=== PATIENT | male | born 1940 | race Caucasian/White ===

== ENCOUNTER 2023-05-24 09:28 | Outpatient (CLI) | payer MEDICARE, BC ==
[2023-05-24 11:05] LABS: #Basophils 0.1 10x3/uL (0.0-0.2); #Eosinphils 0.1 10x3/uL (0.0-0.5); #Neutrophils 4.9 10x3/uL (1.5-8.4); %Basophils 1.6 % (0.0-2.0); %Eosinophils 1.5 % (0.0-6.0); %Lymphocytes 29.3 % (18.0-47.0); %Monocytes 10.9 % (0.0-10.0); %Neutrophils 56.2 % (40.0-75.0); Hematocrit 41.9 % (38.8-50.0); Hemoglobin 13.7 g/dL (13.5-17.5); Mean Corpuscular HGB CONC 32.7 g/dL (32.0-36.0); Mean Corpuscular Hemoglobin 29.4 pg (27.0-33.0); Mean Corpuscular Volume 89.9 fl (81.2-95.1); Mean Platelet Volume 9.5 fl (7.4-10.4); Platelet Count 488 10x3/uL (150-450); RBC Distribution Width 14.3 % (11.5-14.5); Red Blood Cell (RBC) Count 4.66 10x6/uL (4.32-5.72); White Blood Cell (WBC) Count 8.7 10x3/uL (3.5-10.5)
[2023-05-24 11:19] LABS: Anion Gap 12 mmol/L (10-20); BUN (Urea Nitrogen) 23 mg/dL (8.4-25.7); Calc. Creatinine Clearance 0 mL/min (70-130); Calcium 9.6 mg/dL (7.8-10.44); Carbon Dioxide 25 mmol/L (23-31); Chloride 106 mmol/L (98-107); Estimated GFR 84; Glucose 87 mg/dL (83-110); Potassium 4.8 mmol/L (3.5-5.1); Sodium 138 mmol/L (136-145)
== END 2023-05-24 09:29 | disposition home or self-care (01) ==
LOC: LABBT 09:28
PROVIDERS: ATTEND Surgery
DX: Z01.818 Encounter for other preprocedural examination (principal); K40.91 Unilateral inguinal hernia, without obstruction or gangrene, recurrent
CPT/HCPCS: 80048; 85025; 93005; 93010

== ENCOUNTER 2023-05-31 07:42 | Day surgery (SDC) | payer BC ==
[2023-05-24 10:07] VITALS: BMI 24.0
[2023-05-31] MEDS ORDERED: CEFAZOLIN 2 GM VIAL ONE (09:01)
[2023-05-31] MEDS ORDERED: Sodium Chloride 0.9% 100 ML ONE (09:02)
[2023-05-31] MEDS ORDERED: Lidocaine 1% PF 5 ML VIAL ONE (09:05)
[2023-05-31] MEDS ORDERED: PROPOFOL 20 ML ONE (09:05)
[2023-05-31] MEDS ORDERED: EPINEPHrine 1 MG/ML VIAL ONE (09:23)
[2023-05-31] MEDS ORDERED: Bupivacaine 0.25% HCL 30 ML VIAL ONE (09:24)
[2023-05-31] MEDS ORDERED: Lidocaine 2% PF 5 ML VIAL ONE (09:24)
[2023-05-31] MEDS ORDERED: Bupivacaine PF 0.5% 30 ML VIAL ONE (09:33)
[2023-05-31] MEDS ORDERED: fentaNYL PF 100 MCG/2 ML SYRINGE ONE (09:52)
[2023-05-31] MEDS ORDERED: Ondansetron PF 4 MG/2 ML Vial ONE (10:04)
[2023-05-31] MEDS ORDERED: Dexamethasone 4 mg/ml Vial ONE (10:04)
[2023-05-31] MEDS ORDERED: ePHEDrine Sulfate 50 MG/10 ML VIAL ONE (10:10)
[2023-05-31] MEDS ORDERED: fentaNYL 50 mcg/mL 1 mL Vial ONE (10:30)
== END 2023-05-31 13:00 | disposition home or self-care (01) ==
LOC: SDC 07:42
PROVIDERS: ATTEND Surgery
PROC: 0YU50JZ Supplement Right Inguinal Region with Synthetic Substitute, Open Approach (ICD-10-PCS; principal; 2023-05-31)
DX: K40.91 Unilateral inguinal hernia, without obstruction or gangrene, recurrent (principal); J45.909 Unspecified asthma, uncomplicated; Z88.2 Allergy status to sulfonamides; Z88.1 Allergy status to other antibiotic agents; Z88.5 Allergy status to narcotic agent
CPT/HCPCS: A4306; C1781; J0171; J0665; J1100; J2001; J2405; J2704; J3010; J3490